=== PATIENT | male | born 1970 | race Caucasian/White ===

== ENCOUNTER 2016-06-06 06:52 | Emergency (ER) | payer BC ==
[2016-06-06] MEDS ORDERED: PROCHLORPERAZINE EDISYLATE INJ 10 MG/2 ML VIAL IV ONE (07:22)
[2016-06-06] MEDS ORDERED: DIPHENHYDRAMINE HCL 50 MG/ML VIAL IV ONE (07:22)
[2016-06-06] MEDS ORDERED: KETOROLAC TROMETHAMINE INJ/PF 30 MG/1 ML SDV IV ONE (07:22)
--- NOTE | 2016-06-06 07:27 | ER Document Report ---
ED General - General Mode of Arrival: Ambulatory Information source: Patient TRAVEL OUTSIDE OF THE [place] IN LAST 30 DAYS: No - HPI Patient complains to provider of: Headache Onset: Other - 3-4 days ago Onset/Duration: Intermittent Associated symptoms: Nausea. denies: Vomiting <HARVINDER IVERSON - Last Filed: 06/06/16 07:22> <LIANA MOREAU - Last Filed: 06/06/16 14:27> - General Chief Complaint: High Blood Pressure Stated Complaint: BLOOD PRESSURE PROBLEM Notes: Patient is a 46-year-old male presenting to the emergency department complaining of intermittent severe headaches onset 3-4 days ago. Patient states the pain wraps around the right side of his head into his forehead. Patient states this makes him nauseous, but he has not vomited. Patient states that he has quit smoking, and he has not taken his blood pressure or cholesterol medications today. Patient states that he normally takes these medications at approximately 1700, so he is still on track. Patient has no other complaints at this time. (HARVINDER IVERSON) - Related Data Allergies/Adverse Reactions: No Known Allergies Allergy (Verified 04/18/15 13:55) Past Medical History - General Information source: Patient - Social History Smoking Status: Former Smoker Frequency of alcohol use: None Drug Abuse: None Family History: Reviewed & Not Pertinent Patient has suicidal ideation: No Patient has homicidal ideation: No - Past Medical History Cardiac Medical History: Reports: Hx Heart Attack, Hx Hypercholesterolemia, Hx Hypertension Surgical Hx: Negative - Immunizations Hx Diphtheria, Pertussis, Tetanus Vaccination: Yes <HARVINDER IVERSON - Last Filed: 06/06/16 07:22> Review of Systems - Review of Systems Constitutional: No symptoms reported EENT: No symptoms reported Cardiovascular: No symptoms reported Respiratory: No symptoms reported Gastrointestinal: See HPI, Nausea. denies: Vomiting Genitourinary: No symptoms reported Male Genitourinary: No symptoms reported Musculoskeletal: No symptoms reported Skin: No symptoms reported Hematologic/Lymphatic: No symptoms reported Neurological/Psychological: See HPI, Headaches -: Yes All other systems reviewed and negative <HARVINDER IVERSON - Last Filed: 06/06/16 07:22> Physical Exam - Vital signs Interpretation: Hypertensive - General General appearance: Alert - HEENT Head: Normocephalic, Atraumatic, Tenderness - Some tenderness to frontal muscles and pain with palpation over maxillary sinuses. Eyes: Normal Pupils: PERRL Neck: Other - Posterior cervical tenderness L>R. - Respiratory Respiratory status: No respiratory distress Chest status: Nontender Breath sounds: Normal Chest palpation: Normal - Cardiovascular Rhythm: Regular Heart sounds: Normal auscultation Murmur: No - Abdominal Inspection: Normal Distension: No distension Bowel sounds: Normal Tenderness: Nontender Organomegaly: No organomegaly - Back Back: Normal, Nontender - Extremities General upper extremity: Normal inspection General lower extremity: Normal inspection - Neurological Neuro grossly intact: Yes Cognition: Normal Acworth Coma Scale Eye Opening: Spontaneous [place] Coma Scale Verbal: Oriented Acworth Coma Scale Motor: Obeys Commands Acworth Coma Scale Total: 15 Speech: Normal - Psychological Associated symptoms: Normal affect, Normal mood - Skin Skin Temperature: Warm Skin Moisture: Dry Skin Color: Normal <HARVINDER IVERSON - Last Filed: 06/06/16 07:22> Course <HARVINDER IVERSON - Last Filed: 06/06/16 07:22> - Laboratory Result Diagrams: 06/06/16 12:50 06/06/16 12:50 - EKG Interpretation by [facility] EKG shows normal: Sinus rhythm, [place], Intervals, QRS Complexes, ST-T Waves Rate: Normal - 63 Rhythm: NSR <LIANA MOREAU - Last Filed: 06/06/16 14:27> - Re-evaluation Re-evalutation: 06/06/16 09:21 The patient was sleeping soundly. He was awakened for reevaluation. He states his headache is much better than earlier and he was very thankful for the medication. His blood pressure remains little elevated at 153/116. We will give him a small dose of hydralazine and then reassess. 06/06/16 11:30 Blood pressure remains elevated despite 20 mg hydralazine IV. Headache is coming back and claims it is as bad or worse than before. He remains quite tender to palpate the posterior cervical muscles with the left worse than the right. 06/06/16 14:17 At this time the blood pressure has improved to the 120 systolic range. The patient is feeling much better. He still has reproducible pain when palpating the posterior cervical muscles on the left and this can actually be followed down into the medial scapular region and adjusting this is probably trapezius and parlty levator scapular muscle pain. He states he does have a sling at home that he can use to allow the left shoulder girdle region to rest. (LIANA MOREAU) - Vital Signs Vital signs: Temp Pulse Resp BP Pulse Ox 13 147/93 H 94 06/06/16 12:01 06/06/16 12:01 06/06/16 12:01 (HARVINDER IVERSON) (LIANA MOREAU) - Laboratory Laboratory results interpreted by me: 06/06/16 06/06/16 12:50 12:50 WBC 11.3 H RBC 5.66 H Chloride 110 H Carbon Dioxide 20 L Discharge <HARVINDER IVERSON - Last Filed: 06/06/16 07:22> <LIANA MOREAU - Last Filed: 06/06/16 14:27> - Discharge Clinical Impression: Muscle contraction headache Strain of left levator scapulae muscle Qualifiers: Encounter type: initial encounter Qualified Code(s): S46.812A - Strain of other muscles, fascia and tendons at shoulder and upper arm level, left arm, initial encounter High blood pressure Qualifiers: Hypertension type: essential hypertension Qualified Code(s): I10 - Essential ( primary) hypertension Condition: Stable Disposition: HOME, SELF-CARE Additional Instructions: Tension Headache: Your problem has been diagnosed as muscle tension headache. This very common type of headache occurs because of tightness in the muscles of the head and neck. The headache may last hours or days. The treatment of uncomplicated tension headaches is rest and pain medication. Often, the newer antiinflammatory pain medications are prescribed, as these also decrease the irritability of the painful tissues. Muscle relaxers , cold packs, or warm packs are sometimes helpful. Anti-anxiety medication or narcotics are sometimes needed temporarily, but are best avoided in the long run. Your doctor has evaluated your headache problem, and finds no evidence of a serious health problem as a cause for the headache. If your headache becomes more severe, or if new symptoms develop (such as fever, stiff neck, vomiting, or decreasing alertness) you should be re-examined by the physician. Your headache pain seems to be coming from the left trapezius muscles and left levator scapula muscles. You should wear a sling on the left arm to allow the muscles in the shoulder girdle to relax. Try moist heat to the painful muscles in the neck and upper back. Take the medications as prescribed. Be sure to check your blood pressure to make sure it does not go back up to high. Follow-up with your doctor if not improving. RETURN TO THE EMERGENCY ROOM IF ANY NEW OR WORSENING SYMPTOMS. Prescriptions: Cyclobenzaprine HCl [Flexeril 5 mg Tablet] 5 mg PO TID PRN #15 tablet PRN Reason: Oxycodone HCl/Acetaminophen [Percocet 5-325 mg Tablet] 1 - 2 tab PO ASDIR PRN # 15 tablet PRN Reason: Scribe Attestation: 06/06/16 14:27 I personally performed the services described in the documentation, reviewed and edited the documentation which was dictated to the scribe in my presence, and it accurately records my words and actions. (LIANA MOREAU) Scribe Documentation - Scribe Written by Bandar:: Harvinder Iverson 06/06/2016 0723 acting as scribe for :: Nohemy <HARVINDER IVERSON - Last Filed: 06/06/16 07:22>
--- NOTE | 2016-06-06 08:07 | EKG REPORT ---
SEVERITY:- NORMAL ECG - SINUS RHYTHM : Confirmed by: Rajesh Dye MD 06-Jun-2016 08:06:52
[2016-06-06] MEDS ORDERED: HYDRALAZINE HCL INJ/PF 20 MG/1 ML SDV IV ONE ×3 (09:20→11:30)
[2016-06-06] MEDS ORDERED: NORMAL SALINE 1000 ML 1,000 ML IV ONE (11:29)
[2016-06-06] MEDS ORDERED: METHOCARBAMOL INJ/PF 1000 MG/10 ML SDV IV ONE (11:29)
[2016-06-06] MEDS ORDERED: ONDANSETRON HCL INJ/PF 4 MG/2 ML SDV IV ONE (11:29)
[2016-06-06] MEDS ORDERED: MORPHINE SULFATE 10 MG/ML INJ IV ONE (11:29)
[2016-06-06 13:12] LABS: ABSOLUTE BASOPHILS # (AUTO) 0.1 10^3/uL (0.0-0.2); ABSOLUTE EOSINOPHILS # (AUTO) 0.2 10^3/uL (0.0-0.6); ABSOLUTE LYMPHOCYTES (AUTO) 2.7 10^3/uL (0.5-4.7); ABSOLUTE MONOCYTES (AUTO) 0.9 10^3/uL (0.1-1.4); ABSOLUTE NEUT (AUTO) 7.4 10^3/uL (1.7-8.2); BASOPHILS % (AUTO) 0.6 % (0-2); EOSINOPHILS % (AUTO) 2.2 % (0-6); HEMATOCRIT 49.4 % (37.9-51.0); HEMOGLOBIN 16.2 g/dL (13.5-17.0); HGB HCT DIFFERENCE -0.8; LYMPHOCYTES % (AUTO) 23.6 % (13-45); MEAN CORPUSCULAR HEMOGLOBIN 28.6 pg (27.0-33.4); MEAN CORPUSCULAR HGB CONC 32.8 g/dL (32.0-36.0); MEAN CORPUSCULAR VOLUME 87 fl (80-97); MONOCYTES % (AUTO) 7.8 % (3-13); RED BLOOD COUNT 5.66 10^6/uL (4.35-5.55); RED CELL DISTRIBUTION WIDTH 13.9 % (11.5-14.0); SEGMENTED NEUTROPHILS % (AUTO) 65.8 % (42-78); WHITE BLOOD COUNT 11.3 10^3/uL (4.0-10.5)
[2016-06-06 13:33] LABS: ALANINE AMINOTRANSFERASE 39 U/L (21-72); ALBUMIN 3.9 g/dL (3.5-5.0); ALKALINE PHOSPHATASE 89 U/L (38-126); ANION GAP 12 (5-19); ASPARTATE AMINO TRANSFERASE 34 U/L (17-59); BILIRUBIN,TOTAL 0.7 mg/dL (0.2-1.3); BLOOD UREA NITROGEN 16 mg/dL (7-20); CALCIUM 9.2 mg/dL (8.4-10.2); CARBON DIOXIDE 20 mmol/L (22-30); CHLORIDE 110 mmol/L (98-107); CREATININE RESULT 0.94 mg/dL (0.52-1.25); GLUCOSE 108 mg/dL (75-110); POTASSIUM 3.6 mmol/L (3.6-5.0); SODIUM 142.1 mmol/L (137-145); TOTAL PROTEIN 7.4 g/dL (6.3-8.2)
[2016-06-06 14:32] VITALS: BP 129/94
== END 2016-06-06 14:38 | disposition home or self-care (01) ==
LOC: ER 06:52
DX: S16.1XXA Strain of muscle, fascia and tendon at neck level, initial encounter (principal); X58.XXXA Exposure to other specified factors, initial encounter; I10 Essential (primary) hypertension; R51 Headache; R11.0 Nausea; I25.2 Old myocardial infarction; E78.00 Pure hypercholesterolemia, unspecified; Z87.891 Personal history of nicotine dependence; Z79.899 Other long term (current) drug therapy
CPT/HCPCS: 93005; 96376; 99284; 96361; 96374; 96375; 36415; 85025; 80053; 93010; J1200; J0360; J2800; J1885; J2270; J0780; J2405; J7030

== ENCOUNTER 2017-06-08 00:35 | Emergency (ER) | payer SELFPAY ==
[2017-06-08] MEDS ORDERED: ACETAMINOPHEN 325 MG TABLET PO ONE (00:36)
[2017-06-08] MEDS ORDERED: HYDROMORPHONE HCL INJ/PF 2 MG/ML AMPULE IM ONE (01:00)
[2017-06-08] MEDS ORDERED: ONDANSETRON 4 MG TAB.RAPDIS PO ONE (01:00)
--- NOTE | 2017-06-08 01:07 | ER Document Report ---
ED Extremity Problem, Upper - General Chief Complaint: Arm Pain Stated Complaint: FALL,RIGHT ARM PAIN Time Seen by Provider: 06/08/17 00:54 Mode of Arrival: Ambulatory Information source: Patient TRAVEL OUTSIDE OF THE [place] IN LAST 30 DAYS: No - HPI Patient complains to provider of: Injury, Pain, Right, Arm Onset: This evening Recent injury: Yes Where: Home Notes: Patient states that he injured his right arm this evening while standing on 2 foot ladder at home. He states that he fell backwards injuring his right humerus. He denies striking his head, loss of consciousness, or blood thinners. He denies any weakness. He does complain of some tingling to his hand. He denies any nausea, vomiting, diarrhea. He denies any neck or back pain. He denies any chest pain. He denies any nausea, vomiting, diarrhea. He denies any other injuries or any other complaints. - Related Data Allergies/Adverse Reactions: No Known Allergies Allergy (Verified 04/18/15 13:55) Past Medical History - Social History Smoking Status: Unknown if Ever Smoked Family History: Reviewed & Not Pertinent - Past Medical History Cardiac Medical History: Reports: Hx Heart Attack, Hx Hypercholesterolemia, Hx Hypertension Renal/ Medical History: Denies: Hx Peritoneal Dialysis - Immunizations Hx Diphtheria, Pertussis, Tetanus Vaccination: Yes Review of Systems - Review of Systems -: Yes All other systems reviewed and negative Physical Exam - Notes Notes: GENERAL: alert, cooperative, nontoxic, no distress. HEAD: normocephalic, atraumatic EYES: conjunctiva pink without discharge, no external redness or swelling. PERRL , EOM'S INTACT EARS: no external swelling, no external redness. No hemotympanum EM NOSE: atraumatic, no external swelling. No bleeding MOUTH/THROAT: mucous membranes moist and pink, posterior pharynx without erythema, swelling, exudate. No trismus or drooling. NECK: soft, supple, full range of motion, no meningismus. No midline tenderness step-offs or crepitus to palpation of the cervical spine. CHEST: no distress, lungs clear and equal throughout. No wheezing, rales, rhonchi. CARDIAC: regular rate and rhythm, no murmur, normal capillary refill, normal pulses. No peripheral edema noted. ABDOMEN: Soft, nontender. No ecchymosis. BACK: full range of motion, no CVA tenderness. No midline tenderness step-offs or crepitus to palpation of the thoracic or lumbar spine. EXTREMITIES: Tenderness and bruising to the right mid humerus with hematoma noted to the mid humerus. This area is quite tense to palpation. Tingling to the right fingers, the patient states that he can feel me touching him. Capillary refill is brisk. Hand is warm. Pulse is normal. Hand is warm. NEURO: alert and oriented x 3, no focal deficits, full range of motion of all extremities. Cranial nerves II through XII are grossly intact. Normal sensation bilaterally. Normal strength bilaterally. PYSCH: appropriate mood, affect. Patient is cooperative. SKIN: pink, warm, dry, no rash. Course - Re-evaluation Re-evalutation: 06/08/17 02:01 Patient is nontoxic appearing with stable vitals. The patient fell off a ladder injuring his right upper arm earlier this evening. On exam he is noted to have a large tense hematoma to the upper arm. Does complain of some tingling to his hand but has sensation and has normal pulse at this time. X- ray showed no acute bony abnormality. Due to the large size of this hematoma as well as how tense this area is, there is a concern for possible compartment syndrome. I discussed the case with Dr. Bishop my ED attending who evaluated the patient in the emergency department. We discussed the case with Dr. Hannah the orthopedist at [facility]. He would like us to observe the patient in the emergency department overnight and he will see the patient this morning for evaluation. At this point the patient is neurovascularly intact and will continue to be closely monitored. We will keep his pain under control till he is evaluated by or so. - Diagnostic Test Radiology reviewed: Image reviewed, Reports reviewed - No acute bony abnormality per the radiologist Discharge - Discharge Clinical Impression: Traumatic hematoma of right upper arm Qualifiers: Encounter type: initial encounter Qualified Code(s): S40.021A - Contusion of right upper arm, initial encounter Condition: Stable
--- NOTE | 2017-06-08 01:12 | RADIOLOGY REPORT (SQ) ---
EXAM DESCRIPTION: HUMERUS RIGHT CLINICAL HISTORY: 47 years, Male, injury COMPARISON: None. NUMBER OF VIEWS: 2 LIMITATIONS: None. Findings: Mild osteoarthritis of the right acromioclavicular joint. Bones, joints, and soft tissues of the right humerus appear otherwise intact. IMPRESSION: No acute findings.
--- NOTE | 2017-06-08 02:05 | ER Document Report ---
Doctor's Note Notes: 06/08/17 02:03 I was asked to see this patient in consultation by the nurse practitioner. On evaluation of the patient's right upper extremity and concerned with the possibility of an acute compartment syndrome versus a very tense arm in the setting of a large hematoma. RMU motor and sensory distribution is intact. Patient has a strong 2+ radial and ulnar pulse. He is able to flex of the forearm to 75 but then stopped secondary to pain. The area over the deltoid and triceps is soft but on palpation of the medial aspect of the proximal right upper extremity above the level of the elbow going towards the axilla is very tense on palpation without any fluctuance or softness to the compartment. Although I think the likelihood of an acute compartment syndrome is low, physical examination is worrisome enough for this diagnosis that I have spoken with the orthopedic surgeon on-call Dr. Hannah. We have agreed that he will assess the patient when he comes in to the emergency department in the morning. He is informed of the likelihood of an upper extremity compartment syndrome is very low and is agreeable to not immediately come to the emergency department immediately assess. Will obtain basic labs, CT the proximity with contrast, and provide ongoing pain control.
[2017-06-08 02:34] LABS: ABSOLUTE BASOPHILS # (AUTO) 0.1 10^3/uL (0.0-0.2); ABSOLUTE EOSINOPHILS # (AUTO) 0.2 10^3/uL (0.0-0.6); ABSOLUTE LYMPHOCYTES (AUTO) 2.6 10^3/uL (0.5-4.7); ABSOLUTE NEUT (AUTO) 10.2 10^3/uL (1.7-8.2); BASOPHILS % (AUTO) 0.5 % (0-2); EOSINOPHILS % (AUTO) 1.4 % (0-6); HEMATOCRIT 46.7 % (37.9-51.0); HEMOGLOBIN 15.6 g/dL (13.5-17.0); LYMPHOCYTES % (AUTO) 18.8 % (13-45); MEAN CORPUSCULAR HEMOGLOBIN 28.2 pg (27.0-33.4); MEAN CORPUSCULAR HGB CONC 33.4 g/dL (32.0-36.0); MEAN CORPUSCULAR VOLUME 85 fl (80-97); MONOCYTES % (AUTO) 7.4 % (3-13); PLATELET COUNT 283 10^3/uL (150-450); RED BLOOD COUNT 5.53 10^6/uL (4.35-5.55); RED CELL DISTRIBUTION WIDTH 14.4 % (11.5-14.0); SEGMENTED NEUTROPHILS % (AUTO) 71.9 % (42-78); TOTAL CELLS COUNTED % (AUTO) 100 %; WHITE BLOOD COUNT 14.1 10^3/uL (4.0-10.5)
[2017-06-08 02:37] LABS: INTERNATIONAL RATION (INR) 0.93; PROTHROMBIN TIME 13.1 SEC (11.4-15.4)
[2017-06-08 02:38] LABS: PARTIAL THROMBOPLASTIN TIME 28.2 SEC (23.5-35.8)
[2017-06-08 02:46] LABS: ALANINE AMINOTRANSFERASE 35 U/L (21-72); ALBUMIN 4.1 g/dL (3.5-5.0); ALKALINE PHOSPHATASE 76 U/L (38-126); ANION GAP 11 (5-19); ASPARTATE AMINO TRANSFERASE 26 U/L (17-59); BILIRUBIN,DIRECT 0.3 mg/dL (0.0-0.4); BILIRUBIN,TOTAL 0.4 mg/dL (0.2-1.3); BLOOD UREA NITROGEN 21 mg/dL (7-20); CALCIUM 10.1 mg/dL (8.4-10.2); CARBON DIOXIDE 25 mmol/L (22-30); CHLORIDE 109 mmol/L (98-107); GLUCOSE 103 mg/dL (75-110); POTASSIUM 4.3 mmol/L (3.6-5.0); TOTAL PROTEIN 7.2 g/dL (6.3-8.2)
--- NOTE | 2017-06-08 03:43 | RADIOLOGY REPORT (SQ) ---
EXAM DESCRIPTION: CT RT UPPER EXTREMITY WITH CLINICAL HISTORY: 47 years Male, eval rue swelling, pain COMPARISON: None. TECHNIQUE: No contrast. Coronal and sagittal reformat. This exam was performed according to our departmental dose-optimization program, which includes automated exposure control, adjustment of the mA and/or kV according to patient size and/or use of iterative reconstruction technique. Limitation: Streak artifact partially obscures soft tissue detail. FINDINGS: Right humerus appears intact with no evidence of fracture or dislocation. Mild osteoarthritis of the right shoulder and right elbow. 0.3 cm ossicular fragmentation at the right ulnar olecranon may indicate prior injury or fragmented osteoarthritis. IMPRESSION: No acute defect of the right humerus.
[2017-06-08] MEDS ORDERED: NORMAL SALINE 1000 ML 1,000 ML IV ONE (03:59)
[2017-06-08] MEDS: MORPHINE SULFATE 10 MG/ML INJ IV PRN ×3 (04:06→10:34)
[2017-06-08 04:45] LABS: CREATINE KINASE 145 U/L (55-170)
--- NOTE | 2017-06-08 06:25 | PDOC CONSULTATION ---
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 Pertinent past medical history is notable for an incident approximately a week or week and a half ago in which he was using his upper extremity heard a pop and then had ecchymosis that began in the antecubital fossa and extended distally over the volar forearm. That eventually resolved. Last night he was on a ladder was using his right upper extremity stabilize himself when it was we gave way and he fell sustaining a contusion to the upper medial arm. He presented to emergency room where considerable swelling was observed and a question was raised about a potential compartment syndrome. Orthopedics is consulted for evaluation and treatment. Past Medical History Cardiac Medical History: Reports: Myocardial Infarction, Hyperlipidema, Hypertension Past Surgical History Past Surgical History: Reports: None Social History Information Source: Patient, [facility] Records Smoking Status: Unknown if Ever Smoked Frequency of Alcohol Use: None Hx Recreational Drug Use: No Hx Prescription Drug Abuse: No Family History Family History: Reviewed & Not Pertinent Parental Family History Reviewed: No Children Family History Reviewed: No Sibling(s) Family History Reviewed.: No Medication/Allergy Home Medications: Amlodipine Besylate 10 mg PO DAILY #30 tab 04/18/15 Atorvastatin Calcium 40 mg PO DAILY #30 tablet 04/18/15 Metoprolol Tartrate 25 mg PO BID #60 tablet 04/18/15 Cyclobenzaprine HCl [Flexeril 5 mg Tablet] 5 mg PO TID PRN #15 tablet 06/06/16 Oxycodone HCl/Acetaminophen [Percocet 5-325 mg Tablet] 1 - 2 tab PO ASDIR PRN # 15 tablet 06/06/16 Allergies/Adverse Reactions: No Known Allergies Allergy (Verified 04/18/15 13:55) Review of Systems All systems: as per PM[facility] Physical Exam Vital Signs: Temp Pulse Resp BP Pulse Ox 36.4 C 58 L 156/111 H 95 06/08/17 00:39 06/08/17 04:04 06/08/17 04:09 06/08/17 00:41 Intake & Output 06/06/17 06/07/17 06/08/17 06:59 06:59 06:59 Weight 99.79 kg General appearance: PRESENT: no acute distress, well-developed Head exam: PRESENT: normocephalic Respiratory exam: PRESENT: unlabored Cardiovascular exam: PRESENT: RRR Pulses: PRESENT: normal radial pulses Vascular exam: PRESENT: normal capillary refill GI/Abdominal exam: PRESENT: soft Rectal exam: PRESENT: deferred Extremities exam: PRESENT: other - The patient's an overweight middle-aged white male with his right upper extremity supported on a pillow and a Esparza stand at approximately shoulder level. Examination of the right upper extremity reveals significant soft tissue tension along the medial upper arm and tenderness to palpation. This is diffuse and extends from the axilla to the humeral epicondyle. There is an ecchymosis over the antecubital fossa. Range of motion of the shoulder is uncomfortable but full. Range of motion of the elbow was notable for a limitation approximately 90 of flexion. This is limited by pain. 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 The patient states that if he lets his arm hanging dependently that he begins to have tingling over the dorsal surface of the hand. With his arm elevated he has subjectively normal sensation Neurological exam: PRESENT: alert, awake, oriented to person, oriented to place , oriented to time, oriented to situation. ABSENT: motor sensory deficit Psychiatric exam: PRESENT: appropriate affect, normal mood. ABSENT: homicidal ideation, suicidal ideation Skin exam: PRESENT: dry, intact, warm. ABSENT: cyanosis, rash Results Laboratory Results: 06/08/17 02:13 06/08/17 02:13 06/08/17 06/08/17 02:13 02:13 WBC 14.1 H RBC 5.53 Hgb 15.6 Hct 46.7 MCV 85 MCH 28.2 MCHC 33.4 RDW 14.4 H Plt Count 283 Seg Neutrophils % 71.9 Lymphocytes % 18.8 Monocytes % 7.4 Eosinophils % 1.4 Basophils % 0.5 Absolute Neutrophils 10.2 H Absolute Lymphocytes 2.6 Absolute Monocytes 1.0 Absolute Eosinophils 0.2 Absolute Basophils 0.1 Sodium 145.0 Potassium 4.3 Chloride 109 H Carbon Dioxide 25 Anion Gap 11 BUN 21 H Creatinine 1.10 Est GFR ( Amer) > 60 Est GFR (Non-Af Amer) > 60 Glucose 103 Calcium 10.1 Total Bilirubin 0.4 AST 26 ALT 35 Alkaline Phosphatase 76 Total Protein 7.2 Albumin 4.1 06/08/17 02:13 Creatine Kinase 145 Impressions: Humerus X-Ray 06/08/17 00:00 IMPRESSION: No acute findings. Upper Extremity CT 06/08/17 02:02 IMPRESSION: No acute defect of the right humerus. Status: Imported from PACS Assessment & Plan - Diagnosis (1) Lange Oumar lesion Is this a current diagnosis for this admission?: Yes Plan: 47-year-old white male with trauma to the right upper medial arm secondary to a fall. My concern for compartment syndrome is low especially since I have never seen, heard, or read about an upper arm compartment syndrome. I do think he has a sizable hematoma that would probably best characterized as a Lange Oumar lesion. I also think he had a pre-existing distal biceps tear which occurred approximately week ago. Ordering an MRI scan with contrast will allow me to evaluate both of these lesions. (2) Tear of distal tendon of biceps Is this a current diagnosis for this admission?: Yes Plan: To be evaluated with an MRI - Time Time Spent: 50 to 70 Minutes Anticipated discharge: Home Within: within 24 hours
--- NOTE | 2017-06-08 10:08 | RADIOLOGY REPORT (SQ) ---
EXAM DESCRIPTION: MRI RT UPPER EXTREMITY WITHOUT COMPLETED DATE/TIME: 06/08/2017 9:49 am REASON FOR STUDY: swelling, pain COMPARISON: Right humerus films 06/08/[address] 06/08/2017 TECHNIQUE: Right upper extremity images acquired and stored on PACS. Multiplanar images with axial T 1, fat-sat T2 images an sagittal fat-sat T2 images LIMITATIONS: Motion artifact, patient unable to comply with full exam FINDINGS: Full-thickness tear of the distal biceps tendon, with proximal retraction of the biceps mu scle and tendon. There is a gap between the tendon fragment and radial tuberosity of about 10 cm. N o bony avulsion off the radial tuberosity is seen. There is minimal residual tendon still attached t o the radial tuberosity. There is a hematoma in the ventral upper arm along the biceps musculotendinous junction and distal te ndon fragment. This is surrounded by subcutaneous edema. Hematoma measures about 6.5 x 5 cm in size best shown on axial images 27 through 51. The humerus is intact, proximal radius and ulna are intact. IMPRESSION: Full-thickness distal biceps tendon tear, with proximal retraction of the muscle and ten don, and a gap between the tendon and radial tuberosity of about 1 cm. TECHNICAL DOCUMENTATION: JOB ID: [id number] [employer]- All Rights Reserved
[2017-06-08 12:08] VITALS: BP 165/102
== END 2017-06-08 12:08 | disposition home or self-care (01) ==
LOC: ER 00:35
DX: S46.211A Strain of muscle, fascia and tendon of other parts of biceps, right arm, initial encounter (principal); W11.XXXA Fall on and from ladder, initial encounter; Y92.009 Unspecified place in unspecified non-institutional (private) residence as the place of occurrence of the external cause; R20.2 Paresthesia of skin; I10 Essential (primary) hypertension; I25.2 Old myocardial infarction
CPT/HCPCS: 96376; 99284; 96372; 96361; 96374; 96375; 36415; 82550; 85025; 85610; 85730; 80053; 73218; 73060; 73201; S0119; J2270; J1170; J7030

== ENCOUNTER 2017-06-19 10:55 | Day surgery (SDC) | payer BC ==
[2017-06-15 11:00] LABS: APPEARANCE,URINE CLEAR; BILIRUBIN,URINE NEGATIVE (NEGATIVE); COLOR,URINE YELLOW; GLUCOSE, URINE NEGATIVE (NEGATIVE); KETONES,URINE NEGATIVE (NEGATIVE); LEUKOCYTE ESTERASE,URINE NEGATIVE (NEGATIVE); NITRITE,URINE NEGATIVE (NEGATIVE); PROTEIN,URINE NEGATIVE (NEGATIVE); URINE SPECIFIC GRAVITY 1.025; UROBILINOGEN,URINE NEGATIVE mg/dL (<2.0)
[2017-06-15 11:09] LABS: ABSOLUTE BASOPHILS # (AUTO) 0.1 10^3/uL (0.0-0.2); ABSOLUTE EOSINOPHILS # (AUTO) 0.3 10^3/uL (0.0-0.6); ABSOLUTE LYMPHOCYTES (AUTO) 3.1 10^3/uL (0.5-4.7); ABSOLUTE MONOCYTES (AUTO) 1.2 10^3/uL (0.1-1.4); ABSOLUTE NEUT (AUTO) 8.3 10^3/uL (1.7-8.2); BASOPHILS % (AUTO) 0.7 % (0-2); EOSINOPHILS % (AUTO) 2.2 % (0-6); HEMATOCRIT 48.1 % (37.9-51.0); HEMOGLOBIN 16.1 g/dL (13.5-17.0); LYMPHOCYTES % (AUTO) 24.1 % (13-45); MEAN CORPUSCULAR HEMOGLOBIN 28.5 pg (27.0-33.4); MEAN CORPUSCULAR HGB CONC 33.4 g/dL (32.0-36.0); MEAN CORPUSCULAR VOLUME 85 fl (80-97); MONOCYTES % (AUTO) 9.2 % (3-13); PLATELET COUNT 332 10^3/uL (150-450); RED BLOOD COUNT 5.64 10^6/uL (4.35-5.55); RED CELL DISTRIBUTION WIDTH 14.9 % (11.5-14.0); SEGMENTED NEUTROPHILS % (AUTO) 63.8 % (42-78); TOTAL CELLS COUNTED % (AUTO) 100 %
[2017-06-15 11:42] LABS: ANION GAP 9 (5-19); BLOOD UREA NITROGEN 29 mg/dL (7-20); CARBON DIOXIDE 28 mmol/L (22-30); CHLORIDE 104 mmol/L (98-107); GLUCOSE 92 mg/dL (75-110); POTASSIUM 4.6 mmol/L (3.6-5.0); SODIUM 141.1 mmol/L (137-145)
--- NOTE | 2017-06-15 12:36 | RADIOLOGY REPORT (SQ) ---
EXAM DESCRIPTION: CHEST PA/LATERAL COMPLETED DATE/TIME: 06/15/2017 11:20 am REASON FOR STUDY: PRE OP COMPARISON: 04/18/2015 EXAM PARAMETERS: NUMBER OF VIEWS: two views TECHNIQUE: Digital Frontal and Lateral radiographic views of the chest acquired. RADIATION DOSE: NA LIMITATIONS: none FINDINGS: LUNGS AND PLEURA: No opacities, masses or pneumothorax. No pleural effusion. MEDIASTINUM AND HILAR STRUCTURES: No masses or contour abnormalities. HEART AND VASCULAR STRUCTURES: Heart normal size. No evidence for failure. BONES: No acute findings. HARDWARE: None in the chest. OTHER: No other significant finding. IMPRESSION: NO SIGNIFICANT RADIOGRAPHIC FINDING IN THE CHEST. TECHNICAL DOCUMENTATION: JOB ID: [id number] [employer]- All Rights Reserved
--- NOTE | 2017-06-15 12:50 | EKG REPORT ---
SEVERITY:- BORDERLINE ECG - SINUS RHYTHM BORDERLINE T ABNORMALITIES, INFERIOR LEADS : Confirmed by: Rajesh Dye MD 15-Jun-2017 12:50:07
[~2017-06-19 10:55] MED LIST: BACITRACIN INJ 50,000 UNIT VIAL ONE; BUPIVACAINE HCL 0.5 % INJ/PF 30 ML SDV ONE; CEFAZOLIN 2 GM/D5W RTU 2 GM/50 ML RTUPB IV PRN; DEXAMETHASONE SOD PHOSPHATE INJ 4 MG/1 ML VIAL ONE; GLYCOPYRROLATE INJ 0.4 MG/2 ML VIAL ONE; KETOROLAC TROMETHAMINE 60 MG/2 ML SDV ONE; LACTATED RINGERS 1000 ML IV PRN; LIDOCAINE 0.5% INJ-PF (5 MG/ML) 50 ML SDV SUBCUT PRN; ONDANSETRON HCL INJ/PF 4 MG/2 ML SDV ONE; ROCURONIUM BROMIDE INJ 50 MG/5 ML VIAL IV ONE; SUCCINYLCHOLINE CHLORIDE INJ 200 MG/10 ML VIAL ONE
[2017-06-19] MEDS ORDERED: FENTANYL CITRATE INJ/PF 250 MCG/5 ML AMPULE ONE (12:44)
[2017-06-19] MEDS ORDERED: MIDAZOLAM 2 MG/2 ML INJ ONE (12:44)
[2017-06-19] MEDS ORDERED: PROPOFOL INJ 200 MG/20 ML VIAL IV ONE (12:45)
[2017-06-19] MEDS ORDERED: DIPHENHYDRAMINE HCL 50 MG/ML VIAL IV PRN ×2 (13:28→16:32)
[2017-06-19] MEDS ORDERED: PROMETHAZINE HCL INJ 25 MG/1 ML VIAL IV PRN ×4 (13:28→16:32)
[2017-06-19] MEDS ORDERED: OXYCODONE-ACETAMINOPHEN 5-325 MG TABLET PO PRN ×5 (13:28→16:49)
[2017-06-19] MEDS ORDERED: FENTANYL CITRATE INJ/PF 100 MCG/2 ML AMPUL IV PRN ×6 (13:28→16:32)
[2017-06-19] MEDS ORDERED: MEPERIDINE HCL/PF INJ 25 MG/1 ML DISP.SYRIN IV PRN ×2 (13:28→16:32)
[2017-06-19] MEDS ORDERED: MORPHINE SULFATE 10 MG/ML INJ IV PRN ×2 (13:28→16:32)
[2017-06-19] MEDS ORDERED: DEXMEDETOMIDINE INJ 80 MCG/20 ML VIAL IV ONE (15:50)
--- NOTE | 2017-06-19 15:55 | PDOC DISCHARGE SUMMARY ---
Discharge Summary (SDC) - Discharge Final Diagnosis: Right Distal Biceps Rupture Date of Surgery: 06/19/17 Discharge Date: 06/19/17 Condition: Good Treatment or Instructions: Schedule Follow Up w/ Dr. Ajay Hamm @ [facility] to be seen in 10-14 days or as scheduled [place]: [place]: [place]: Ice and elevate Keep splint clean/dry/intact. If your fingers become numb please unwrap the Wesley wrap but leave the splint in place, if the sensation does not return within 30 minutes please return to the emergency department. May begin finger range of motion attempting to make full fist. Please use ibuprofen (Motrin or Advil) 600-800 mg every 8 hours as needed for pain or fever. You may also use acetaminophen (Tylenol) 1000 mg every 4-6 hours as needed for pain or fever. Please be aware that many medications contain acetaminophen, do not exceed a total of 1000 mg of acetaminophen every 6 hours. If ibuprofen and acetaminophen are not sufficient for your pain you may take the Percocet. Please be aware that the Percocet does contain Tylenol. Stool softener of choice when on pain medication. Prescriptions: Ketorolac Tromethamine [Toradol 10 mg Tablet] 10 mg PO Q8 PRN #10 tablet PRN Reason: Oxycodone HCl/Acetaminophen [Percocet 5-325 mg Tablet] 1 - 2 tab PO ASDIR PRN # 45 tablet PRN Reason: Referrals: KATHERINE ROBERT MD [Primary Care Provider] -
[2017-06-19] MEDS: FENTANYL CITRATE INJ/PF 100 MCG/2 ML AMPUL ONE ×2 (16:05→16:15)
--- NOTE | 2017-06-19 16:08 | Operative Report ---
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 Patient felt a pop and had notable swelling and ecchymosis. He subsequently had an MRI confirming distal biceps rupture. And followed up at my office at which point we discussed treatment options including operative versus nonoperative intervention. Risks and benefits were explained to the patient, patient verbalized understanding consented for the procedure. Procedure In Detail: Patient was seen and evaluated in the preoperative holding area. The RIGHT upper extremity was initialized and marked. Patient received 2g of Ancef IV for bacterial prophylaxis. Patient was taken back to the operative room where transferred to the operative table and placed under general anesthesia. Once they were adequately anesthetized a surgical team debriefing was performed ensuring all instrumentation was available, the surgical procedure was discussed with possible concerns reviewed. The upper extremity was prepped with chlorhexidine and draped in a sterile fashion. A timeout was done identifying correct patient, procedure and extremity everyone in attendance agree with this and verbalized no concerns. Sterile tourniquet was placed and the extremity was exsanguinated the tourniquet was inflated to 250 mmHg. Longitudinal skin incision was made. Blunt dissection performed. The lateral antebrachial cutaneous nerve was identified and retracted with the peripheral venous vasculature. Any peripheral bleeding was controlled with cautery. I then bluntly dissected down retracting the brachialis. With hyper supination of the forearm the bicipital tuberosity was identified. Significant seroma was then encountered proximally when attempting to retrieve the biceps. I was unable to palpate the biceps thus a second incision was made. Longitudinal skin incision was made along the proximal medial aspect of the biceps muscle was palpated. The biceps tendon was then identified with significant tendinosis distally. The biceps tendon was then retrieved through the distal incision special attention was made to pass the biceps tendon deep to the venous vasculature, lateral antebrachial cutaneous nerve and the tourniquet was then deflated to achieve further leash of Wil. Mobilization of the biceps. With blunt dissection I carefully mobilized the muscle belly proximally. I then turned my attention to preparation of the biceps tendon. A fiber loop suture was utilized from proximal to distal approximately 2 cm. And nonviable tendon was then excised distally. I then proceeded with preparation of the radial tuberosity. A Hohmann was placed ulnarly and the [employer] [employer] radially to avoid iatrogenic injury to the PIN. Guidepin was placed in a 30 ulnar direction and a 6 mm tunnel reamed unit cortically as per measurement of my tunnel. The button was then loaded and passed to the far side and fluids. C-arm fluoroscopy was obtained confirming appropriate placement of the button on the dorsal cortex. I then shuttled the tendon to the radial tuberosity maintaining full supination and required flexion of 90 to achieve docking of the tendon. Once appropriate amount of tendon was docked a horizontal mattress suture was placed through the tendon and secured. Elbow could be flexed to 90 maintaining docking of the tendon. The wound was then copiously irrigated with normal saline. Any peripheral bleeding was coagulated until controlled. Subcutaneous tissues closed with interrupted 3-0 Vicryl suture. Skin was closed with running subcuticular 3-0 Monocryl reinforced with Dermabond and Steri-Strips. 20 cc of 0.5% Marcaine without epinephrine was injected for postoperative pain control. Patient was placed in a dorsal plaster splint maintaining elbow flexion of 90 and full supination. Sponge counts, instrument counts, needle counts counts were correct. Patient was then awoken from anesthesia. Transferred from the operating room table to the operating room stretcher. There was no intraoperative complications patient tolerated procedure well stable to PACU. Postoperative plan: Patient will begin physical therapy 4 weeks postoperatively slowly extending the elbow 15 degrees per week.
[2017-06-19] MEDS: MORPHINE SULFATE 10 MG/ML INJ ONE ×2 (16:20→16:25)
--- NOTE | 2017-06-19 16:23 | RADIOLOGY REPORT (SQ) ---
EXAM DESCRIPTION: ELBOW RIGHT AP/LAT; NO CHG FLUORO COMPLETED DATE/TIME: 06/19/2017 3:52 pm REASON FOR STUDY: ORIF RIGHT ELBOW S46.211A STRAIN OF MUSC/FASC/TEND PRT BICEPS, RIGHT ARM, INI COMPARISON: MRI right elbow 06/08/2017 CT right elbow 06/08/2017 Right humerus films 06/08/2017 FLUOROSCOPY TIME: 30 seconds 9 digital images images saved to PACS. TECHNIQUE: Intra-operative images acquired during surgical procedure to evaluate progress. NUMBER OF IMAGES: 9 digital images LIMITATIONS: None. FINDINGS: Fluoroscopy and imaging during distal biceps tendon repair. Please see the operative repo rt for further details IMPRESSION: Intra procedural imaging and fluoro COMMENT: Quality ID [id number]: Final reports for procedures using fluoroscopy that document radiation exp osure indices, or exposure time and number of fluorographic images (if radiation exposure indices are not available) Please consult full operative report of the attending physician for description of the procedure. TECHNICAL DOCUMENTATION: JOB ID: [id number] [email or web address]- All Rights Reserved
[2017-06-19] MEDS ORDERED: HYDROMORPHONE HCL INJ/PF 2 MG/ML AMPULE IV PRN (16:49)
[2017-06-19] MEDS ORDERED: KETOROLAC TROMETHAMINE INJ/PF 30 MG/1 ML SDV IV PRN (16:49)
[2017-06-19] MEDS ORDERED: ONDANSETRON HCL INJ/PF 4 MG/2 ML SDV IV PRN (16:49)
[2017-06-19] MEDS ORDERED: OXYCODONE-ACETAMINOPHEN 5-325 MG TABLET ONE (17:04)
[2017-06-19 18:37] VITALS: BP 127/93
== END 2017-06-19 18:30 | disposition home or self-care (01) ==
LOC: OROUT 10:55
PROVIDERS: ATTEND Orthopaedic Surgery
PROC: 0KQ70ZZ Repair Right Upper Arm Muscle, Open Approach (ICD-10-PCS; principal; 2017-06-19 13:00)
DX: S46.211A Strain of muscle, fascia and tendon of other parts of biceps, right arm, initial encounter (principal); S40.021A Contusion of right upper arm, initial encounter; X58.XXXA Exposure to other specified factors, initial encounter; E78.5 Hyperlipidemia, unspecified; I10 Essential (primary) hypertension; J44.9 Chronic obstructive pulmonary disease, unspecified; F17.210 Nicotine dependence, cigarettes, uncomplicated; I25.2 Old myocardial infarction
CPT/HCPCS: 93005; 36415 ×2; 84132; 85025; 80048; 81001; 71046; 73070; 93010; 24341; J2250; J3490 ×3; J1100; J1885; J3010 ×2; J2270; J0330; J2405; J2704; J0690; 01710

== ENCOUNTER 2018-11-01 09:34 | Emergency (ER) | payer BC ==
[2018-11-01 09:41] VITALS: BP 137/95
[2018-11-01] MEDS ORDERED: IBUPROFEN 800 MG TABLET PO ONE (09:51)
--- NOTE | 2018-11-01 09:53 | ER Document Report ---
HPI - HPI Time Seen by Provider: 11/01/18 09:50 Pain Level: 5 Notes: Patient is a 48-year-old male with a history of hypertension who presents complaining of right foot and ankle pain status post injury prior to arrival. Patient states he was stepping over a guardrail when his left foot caught on the guard rail and all of his weight came down on his right foot/ankle. Patient states that he heard a pop and has not been able to weight-bear or ambulate without pain since then. Patient states that he started to notice swelling on the medial side of his foot and ankle. Denies drug allergies. No other concerns or complaints. Denies any headache, fever, head injury, neck pain, URI, sore throat, chest pain, palpitations, syncope, cough, shortness of breath, wheeze, dyspnea, abdominal pain, nausea/vomiting/diarrhea, urinary retention, dysuria, hematuria, loss of control of bowel or bladder, numbness/tingling, muscle paralysis, or rash. - ROS Systems Reviewed and Negative: Yes All other systems reviewed and negative Past Medical History - Social History Smoking Status: Unknown if Ever Smoked Family History: Reviewed & Not Pertinent - Past Medical History Cardiac Medical History: Reports: Hx Hypercholesterolemia, Hx Hypertension Denies: Hx Coronary Artery Disease, Hx Heart Attack Pulmonary Medical History: Denies: Hx Asthma, Hx Bronchitis, Hx COPD, Hx Pneumonia Neurological Medical History: Denies: Hx Cerebrovascular Accident, Hx Seizures Renal/ Medical History: Denies: Hx Peritoneal Dialysis Musculoskeletal Medical History: Denies Hx Arthritis - Immunizations Hx Diphtheria, Pertussis, Tetanus Vaccination: Yes Vertical Provider Document - CONSTITUTIONAL Agree With Documented VS: Yes Notes: PHYSICAL EXAMINATION: GENERAL: Well-appearing, well-nourished and in no acute distress. LUNGS: Breath sounds clear to auscultation bilaterally and equal. No wheezes rales or rhonchi. HEART: Regular rate and rhythm without murmurs, rubs, gallops. Musculoskeletal: Rt foot/ankle: + mild medial foot/ankle swelling. No deformity. FROM to passive/active. Strength 5+/5. N/V intact distal. + tenderness to the medial malleolus and dorsal medial foot. Achilles intact. Extremities: No cyanosis, clubbing, or edema b/l. Peripheral pulses 2+. Capillary refill less than 3 seconds. NEUROLOGICAL: Normal speech, limping gait. Normal sensory, motor exams PSYCH: Normal mood, normal affect. SKIN: Warm, Dry, normal turgor, no rashes or lesions noted. - INFECTION CONTROL TRAVEL OUTSIDE OF THE [place] IN LAST 30 DAYS: No Course - Re-evaluation Re-evalutation: 11/01/18 10:48 Patient is an afebrile, well-hydrated, 48-year-old male who presents to the ED with Right foot/ankle pain which I suspect to be a sprain versus strain. Vitals are acceptable without any significant tachycardia, tachypnea, or hypoxia. PE is otherwise unremarkable for any neurovascular compromise, obvious tendon/ligament rupture, obvious fracture/dislocation, septic joint. X-ray was unremarkable for any acute pathology. Ankle stirrup and crutches were provided today. Pt given Motrin PO. Patient is nontoxic-appearing. Patient is able to ambulate and weight-bear although he is limping. No other labs or imaging warranted at this time based on H&P. Conservative measures otherwise for symptoms. Recheck with your PCM in 3-5 days. Consider consult orthopedics. Return to the ED with any worsening/concerning symptoms otherwise as reviewed in discharge. Patient is in agreement. - Vital Signs Vital signs: Temp Pulse Resp BP Pulse Ox 98.4 F 70 20 137/95 H 97 11/01/18 09:40 11/01/18 09:40 11/01/18 09:40 11/01/18 09:40 11/01/18 09:40 Discharge - Discharge Clinical Impression: Right foot pain Right ankle pain Qualifiers: Chronicity: acute Qualified Code(s): M25.571 - Pain in right ankle and joints of right foot Condition: Stable Disposition: HOME, SELF-CARE Additional Instructions: Rest, Ice, Compression, Elevation Use crutches/splint as directed Tylenol/ibuprofen as needed Light stretches daily Strength exercises as able Moist heat and massage may help F/u with your PCP in 3-5 days for a recheck Consider consult(s) with Orthopedics/physical therapy for ongoing/worsening symptoms Return to the ED with any worsening symptoms and/or development of fever, headache, chest pain, palpitations, syncope, shortness of breath, trouble breathing, abdominal pain, n/v/d, muscle weakness/paralysis, numbness/tingling, swelling, redness, or other worsening symptoms that are concerning to you. Prescriptions: Naproxen 500 mg PO BID #10 tablet Forms: Elevated Blood Pressure, Return to Work Referrals: KATHERINE ROBERT MD [Primary Care Provider] - Follow up as needed [facility] [Provider Group] - Follow up as needed
--- NOTE | 2018-11-01 10:45 | RADIOLOGY REPORT (SQ) ---
EXAM DESCRIPTION: ANKLE RIGHT COMPLETE COMPLETED DATE/TIME: 11/01/2018 10:19 am REASON FOR STUDY: fall, heard a pop, unable to bear weight COMPARISON: None. NUMBER OF VIEWS: Three views. TECHNIQUE: AP, lateral, and oblique radiographic images acquired of the right ankle. LIMITATIONS: None. FINDINGS: MINERALIZATION: Normal. BONES: No acute fracture or dislocation. No worrisome bone lesions. JOINTS: No effusions. SOFT TISSUES: No soft tissue swelling. No foreign body. OTHER: No other significant finding. IMPRESSION: NEGATIVE STUDY OF THE RIGHT ANKLE. NO RADIOGRAPHIC EVIDENCE OF ACUTE INJURY. TECHNICAL DOCUMENTATION: JOB ID: [id number] [employer]- All Rights Reserved Reading location - IP/workstation name: [email or web address]
--- NOTE | 2018-11-01 10:46 | RADIOLOGY REPORT (SQ) ---
EXAM DESCRIPTION: FOOT RIGHT COMPLETE COMPLETED DATE/TIME: 11/01/2018 10:19 am REASON FOR STUDY: pain s/p injury COMPARISON: None. NUMBER OF VIEWS: Three views. TECHNIQUE: AP, lateral and oblique radiographic images acquired of the right foot. LIMITATIONS: None. FINDINGS: MINERALIZATION: Normal. BONES: No acute fracture or dislocation. No worrisome bone lesions. JOINTS: No effusions. SOFT TISSUES: No soft tissue swelling. No foreign body. OTHER: No other significant finding. IMPRESSION: NEGATIVE STUDY OF THE RIGHT FOOT. NO RADIOGRAPHIC EVIDENCE OF ACUTE INJURY. TECHNICAL DOCUMENTATION: JOB ID: [id number]- All Rights Reserved Reading location - IP/workstation name: [email or web address]
== END 2018-11-01 11:00 | disposition home or self-care (01) ==
LOC: ER 09:34
DX: M79.671 Pain in right foot (principal); M25.572 Pain in left ankle and joints of left foot; M25.471 Effusion, right ankle; M79.89 Other specified soft tissue disorders; W17.89XA Other fall from one level to another, initial encounter; Y93.89 Activity, other specified; I10 Essential (primary) hypertension
CPT/HCPCS: 99283; 73610; 73630; L1902

== ENCOUNTER → 2019-04-13 | Outpatient (CLI) | payer BC ==
--- NOTE | 2019-04-13 12:59 | RADIOLOGY REPORT (SQ) ---
EXAM DESCRIPTION: SHOULDER RIGHT 2 OR MORE VIEWS COMPLETED DATE/TIME: 04/13/2019 12:48 pm REASON FOR STUDY: PAIN IN RIGHT SHOULDER M25.511 PAIN IN RIGHT SHOULDER COMPARISON: None. NUMBER OF VIEWS: Three views. TECHNIQUE: Internal rotation, external rotation, and Y view images acquired of the right shoulder. LIMITATIONS: None. FINDINGS: MINERALIZATION: Normal. BONES: No acute fracture. No worrisome bone lesions. JOINTS: No dislocation. VISUALIZED LUNGS AND RIBS: No pneumothorax. No rib fracture. SOFT TISSUES: No radiopaque foreign body. OTHER: No other significant finding. IMPRESSION: NEGATIVE STUDY OF THE RIGHT SHOULDER. NO RADIOGRAPHIC EVIDENCE OF ACUTE INJURY. TECHNICAL DOCUMENTATION: JOB ID: [id number] [employer]- All Rights Reserved Reading location - IP/workstation name: [email or web address]
== END ==
LOC: OD 12:21
PROVIDERS: ATTEND Internal Medicine
DX: M25.511 Pain in right shoulder (principal)